=== PATIENT | female | born 1995 | race Two or more races ===

== ENCOUNTER 2023-01-30 03:26 | Emergency (ER) | payer OTHER ==
[~2023-01-30] VITALS: Ht 160 cm; Wt 80.7 kg
== END 2023-01-30 06:57 | disposition home or self-care (01) ==
LOC: ER 03:26
DX: S93.492A Sprain of other ligament of left ankle, initial encounter (principal); X50.1XXA Overexertion from prolonged static or awkward postures, initial encounter; Y93.89 Activity, other specified; Y92.89 Other specified places as the place of occurrence of the external cause; S92.912A Unspecified fracture of left toe(s), initial encounter for closed fracture